=== PATIENT | male | born 1995 ===

== ENCOUNTER 2019-01-06 12:30 | Emergency (ER) | payer SELFPAY ==
[2019-01-06 12:47] VITALS: BMI 25.0
[2019-01-06 12:52] VITALS: RESP 18; O2SAT 99
--- NOTE | 2019-01-06 13:02 | C.PDOC ---
History Of Present Illness 23 y/o male comes in complaining of right-sided headache for the last 2 days that is pressure-like, associated with light sensitivity, nausea, and vomiting. States he also feels tingling in the left side of his face and arm. Patient reports he has PMHx of migraine headaches and states this one feels similar. States he never had CT brain done nor seen a neurologist. Patient was concerned so he comes to the ER today. Time Seen by Provider: 01/06/19 12:59 Chief Complaint (Nursing): Headache History Per: Patient History/Exam Limitations: no limitations Onset/Duration Of Symptoms: Days Current Symptoms Are (Timing): Still Present Past Medical History Reviewed: Historical Data, Nursing Documentation, Vital Signs Vital Signs: Last Vital Signs Temp 98.7 F 01/06/19 12:47 Pulse 90 01/06/19 12:47 Resp 18 01/06/19 12:47 BP 127/81 01/06/19 12:47 Pulse Ox 99 01/06/19 12:47 - Medical History PMH: Migraine Family History: States: No Known Family Hx - Social History Hx Alcohol Use: No Hx Substance Use: No Review Of Systems Constitutional: Negative for: Fever, Chills Eyes: Positive for: Other (light sensitivity) Gastrointestinal: Positive for: Nausea, Vomiting Musculoskeletal: Negative for: Neck Pain Neurological: Positive for: Headache (Right-sided), Other (Tingling in left side of face and arm). Negative for: Dizziness Physical Exam - Physical Exam Appears: Non-toxic, No Acute Distress, Other (mild [place]) Skin: Warm, Dry Head: Atraumatic, Normacephalic Eye(s): bilateral: Normal Inspection, EOMI Oral Mucosa: Moist Neck: Supple Cardiovascular: Rhythm Regular, No Murmur Respiratory: Normal Breath Sounds, No Rales, No Rhonchi, No Wheezing Extremity: Bilateral: Atraumatic, Normal Color And Temperature, Normal ROM Neurological/Psych: Oriented x3, Normal Speech, Normal Cognition, Normal Motor, Normal Sensation, Other (no focal deficits) Gait: Steady ED Course And Treatment O2 Sat by Pulse Oximetry: 99 (RA) Pulse Ox Interpretation: Normal - CT Scan/US ct head Other Rad Studies (CT/US): Read By Radiologist, Radiology Report Reviewed CT/US Interpretation: Accession No. : [id number]. Patient Name / ID : MARYELLEN WHITE / [id number]. Exam Date : 01/06/2019 14:23:14 ( Approved ). Study Comment : Sex / Age : M / 23Y. 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 Dictator : Judy Ellison MD. Ocean Rescue Lieutenant : Installation Coordinator : Judy Ellison MD. Approver2 : Report Date : 01/06/2019 14:31:31. My Comment : . Date of service: 01/06/2019. PROCEDURE: CT HEAD WITHOUT CONTRAST. HISTORY: PERISISTENT HEADACHE, SENSORY CHANGES. COMPARISON: None available. TECHNIQUE: Axial computed tomography images were obtained through the head /brain without intravenous contrast. Radiation dose: Total exam DLP = 1129.42 mGy-cm. This CT exam was performed using one or more of the following dose reduction techniques: Automated exposure control, adjustment of the mA and/or kV according to patient size, and/or use of iterative reconstruction technique. FINDINGS: HEMORRHAGE: No intracranial hemorrhage. BRAIN: No mass effect or edema. No atrophy or chronic microvascular ischemic changes. VENTRICLES: Unremarkable. No hydrocephalus. CALVARIUM: Unremarkable. PARANASAL SINUSES: Unremarkable as visualized. No significant inflammatory changes. MASTOID AIR CELLS: Unremarkable as visualized. No inflammatory changes. OTHER FINDINGS: None. IMPRESSION: No evidence of acute intracranial hemorrhage intracranial collection mass effect or midline shift. Progress Note: Head CT ordered without contrast. Patient was given fioricet PO. Disposition Counseled Patient/Family Regarding: Studies Performed, Diagnosis, Need For Followup, Rx Given - Disposition Referrals: Domingo Low MD [Staff Provider] - Disposition: HOME/ ROUTINE Disposition Time: 15:05 Condition: STABLE Additional Instructions: FOLLOW UP WITH NEUROLOGY WITHIN 1 WEEK USE MEDICATION NEEDED RETURN TO ER IF SYMPTOMS WORSEN Prescriptions: Acetaminophen/Butalbital/Caf [Fioricet] 1 tab PO TID PRN #20 tab PRN Reason: Headache Instructions: Migraine Headache (DC) Forms: [employer] (Faroese) Print Language: GUAMANIAN - Clinical Impression Clinical Impression: Migraine - Scribe Statement The provider has reviewed the documentation as recorded by the Scribe Tamia Gibbons Provider Attestation: All medical record entries made by the Scribe were at my direction and personally dictated by me. I have reviewed the chart and agree that the record accurately reflects my personal performance of the history, physical exam, medical decision making, and the department course for this patient. I have also personally directed, reviewed, and agree with the discharge instructions and disposition.
[2019-01-06] MEDS ORDERED: Apap-Butalbital-Caffeine 325-50-40mg Tab PO STA (13:15)
[2019-01-06] MEDS ORDERED: Apap-Butalbital-Caffeine 325-50-40mg Tab ONE (13:25)
--- NOTE | 2019-01-06 14:56 | CT ---
Date of service: 01/06/2019 PROCEDURE: CT HEAD WITHOUT CONTRAST. HISTORY: PERISISTENT HEADACHE, SENSORY CHANGES COMPARISON: None available. TECHNIQUE: Axial computed tomography images were obtained through the head/brain without intravenous contrast. Radiation dose: Total exam DLP = 1129.42 mGy-cm. This CT exam was performed using one or more of the following dose reduction techniques: Automated exposure control, adjustment of the mA and/or kV according to patient size, and/or use of iterative reconstruction technique. FINDINGS: HEMORRHAGE: No intracranial hemorrhage. BRAIN: No mass effect or edema. No atrophy or chronic microvascular ischemic changes. VENTRICLES: Unremarkable. No hydrocephalus. CALVARIUM: Unremarkable. PARANASAL SINUSES: Unremarkable as visualized. No significant inflammatory changes. MASTOID AIR CELLS: Unremarkable as visualized. No inflammatory changes. OTHER FINDINGS: None. IMPRESSION: No evidence of acute intracranial hemorrhage intracranial collection mass effect or midline shift.
[2019-01-06 15:15] VITALS: BP 128/78; PULSE 69; TEMP 98.1
== END 2019-01-06 15:28 | disposition home or self-care (01) ==
LOC: C.ER 12:30
DX: G43.909 Migraine, unspecified, not intractable, without status migrainosus (principal)